=== PATIENT | female | born 1970 | race Caucasian/White ===

== ENCOUNTER 2020-11-08 16:04 | Emergency (ER) | payer OTHER | END 2020-11-08 19:53 | disposition left against medical advice (07) | LOC: ER1 16:04 | DX: M54.5 Low back pain (principal); M54.6 Pain in thoracic spine; Z88.5 Allergy status to narcotic agent; V49.40XA Driver injured in collision with unspecified motor vehicles in traffic accident, initial encounter; Y92.410 Unspecified street and highway as the place of occurrence of the external cause | CPT/HCPCS: 99283 ==

== ENCOUNTER 2021-01-11 12:06 | Emergency (ER) | payer OTHER ==
[2021-01-11] MEDS ORDERED: ALBUTEROL2.5 MG/3 M INH (14:27)
== END 2021-01-11 14:46 | disposition home or self-care (01) ==
LOC: ER1 12:06
DX: S61.211A Laceration without foreign body of left index finger without damage to nail, initial encounter (principal); J20.9 Acute bronchitis, unspecified; J45.909 Unspecified asthma, uncomplicated; F17.200 Nicotine dependence, unspecified, uncomplicated; Z20.822 Contact with and (suspected) exposure to COVID-19; Z23 Encounter for immunization; W26.0XXA Contact with knife, initial encounter; Y92.009 Unspecified place in unspecified non-institutional (private) residence as the place of occurrence of the external cause
CPT/HCPCS: 12001; 71045; 90471; 90715; 99284; U0002